=== PATIENT | male | born 1955 | race Caucasian/White ===

== ENCOUNTER 2020-01-04 18:32 | Emergency (ER) | payer OTHER ==
[~2020-01-04] VITALS: Ht 162.6 cm; Wt 78.9 kg
[2020-01-04 18:37] VITALS: Ht 162.6 cm; Wt 78.9 kg
[2020-01-04 20:20] VITALS: BP 139/76
== END 2020-01-04 20:20 | disposition home or self-care (01) ==
LOC: ED 18:32
DX: G51.0 Bell's palsy (principal)